=== PATIENT | male | born 1990 | race Two or more races ===

== ENCOUNTER 2021-05-21 21:15 | Emergency (ER) | payer OTHER ==
[~2021-05-21] VITALS: Ht 175.3 cm; Wt 68.0 kg
[2021-05-21] MEDS ORDERED: ALLEGRA ALLERG180 MG PO (23:03)
[2021-05-21] MEDS ORDERED: MEDROLPACK PO (23:03)
== END 2021-05-22 00:23 | disposition home or self-care (01) ==
LOC: ER 21:15
DX: L50.9 Urticaria, unspecified (principal)